=== PATIENT | male | born 1970 | race Caucasian/White ===

== ENCOUNTER 2022-04-16 14:10 | Emergency (ER) | payer OTHER, SELFPAY ==
[2022-04-16 14:38] VITALS: BP 162/64; PULSE 85; RESP 16; TEMP 36.8; O2SAT 97
--- NOTE | 2022-04-16 15:31 | ED.EAR ---
HPI - Ear Problem General Chief complaint: Ear Stated complaint: lt earache Time Seen by Provider: 04/16/22 15:31 Source: patient Mode of arrival: ambulatory Limitations: no limitations History of Present Illness HPI Narrative: 51-year-old male presenting for complaint of left ear pain worsening over the past 3 days. He denies tinnitus, dizziness, sinus congestion, fevers or chills. He has taken Tylenol and ibuprofen as needed for pain. MD Complaint: ear pain Related Data Allergies Allergy/AdvReac Type Severity Reaction Status Date / Time lisinopril AdvReac Mild dizziness Verified 04/16/22 15:41 olmesartan [From Benicar] AdvReac Mild Unknown Verified 04/16/22 15:41 Review of Systems Review of Systems: CONSTITUTIONAL: Denies malaise, chills, or fever. EYES: Denies visual changes, redness, or discharge. ENT: Denies rhinorrhea, congestion, sinus pain, and sore throat. Reports ear pain CARDIOVASCULAR: Denies chest pain, palpitations, or edema. RESPIRATORY: Denies cough or dyspnea. GASTROINTESTINAL: Denies abdominal pain, nausea, vomiting, diarrhea SKIN: Denies rash or itching. MUSCULOSKELETAL: Denies myalgia. NEUROLOGIC: Denies headache. All systems reviewed & are unremarkable except as noted in HPI and below PMFSH Comments At time of signature, agree with nursing past medical, surgical, social and family history. There is no relevant family history pertinent to the presenting complaint Exam Narrative: GENERAL: Well-appearing EYES: PERRLA, conjunctivae clear ENT: Nares clear. Mucous membranes moist. Right TM pearly webb with dull light reflex. Left TM erythematous and bulging with purulent effusion; no tragal tenderness. Oropharynx not erythematous without lesions. CHEST: Clear to auscultation, breath sounds equal. HEART: Regular rate and rhythm. No murmur heard. SKIN: Warm, dry, no rash. NEURO: Alert and oriented x3. PSYCH: Normal mood and affect Course Course Emergency Course: Patient is aware of diagnosis, understands and agrees to treatment plan. Anticipatory guidance given. Patient agrees to follow-up as directed and is aware of reasons to seek care at the emergency department. Portions of this record may have been created with voice recognition software Level of Care: Express Care Visit Vital Signs Vital signs: Vital Signs Temperature 98.2 F 04/16/22 14:38 Pulse Rate 85 04/16/22 14:38 Respiratory Rate 16 04/16/22 14:38 Blood Pressure 162/64 H 04/16/22 14:38 Pulse Oximetry 97 04/16/22 14:38 Oxygen Delivery Room Air 04/16/22 14:38 Temperature 98.2 F 04/16/22 14:38 Pulse Rate 85 04/16/22 14:38 Respiratory Rate 16 04/16/22 14:38 Blood Pressure 162/64 H 04/16/22 14:38 Pulse Oximetry 97 04/16/22 14:38 Oxygen Delivery Room Air 04/16/22 14:38 Reviewed Medical Decision Making MDM Narrative Medical decision making narrative: Advised supportive measures and signs/symptoms to go to the ER. Patient is appropriate for outpatient treatment and follow-up. Differential Diagnosis Differential Diagnosis: Coronavirus, strep pharyngitis, allergic rhinitis, upper respiratory tract infection, sinusitis, rhinosinusitis, nasopharyngitis, viral pharyngitis, otitis media, otitis externa, eustachian tube dysfunction, foreign body, cerumen impaction. Vital Signs Vital Signs: Vital Signs Temperature 98.2 F 04/16/22 14:38 Pulse Rate 85 04/16/22 14:38 Respiratory Rate 16 04/16/22 14:38 Blood Pressure 162/64 H 04/16/22 14:38 Pulse Oximetry 97 04/16/22 14:38 Oxygen Delivery Room Air 04/16/22 14:38 Temperature 98.2 F 04/16/22 14:38 Pulse Rate 85 04/16/22 14:38 Respiratory Rate 16 04/16/22 14:38 Blood Pressure 162/64 H 04/16/22 14:38 Pulse Oximetry 97 04/16/22 14:38 Oxygen Delivery Room Air 04/16/22 14:38 Discharge Plan Discharge Clinical Impression: Otitis media Patient Disposition: Home, Self-Care Condition: Stable Instr
== END 2022-04-16 15:45 | disposition home or self-care (01) ==
PROVIDERS: Emergency Provider Nurse Practitioner Family; PCP Physician Assistant Medical
DX: H66.92 Otitis media, unspecified, left ear (principal)
CPT/HCPCS: 99203; G0463

== ENCOUNTER 2023-07-22 14:36 | Outpatient (CLI) | payer OTHER, SELFPAY ==
--- NOTE | ~2023-07-22 | US_ITS ---
EXAMINATION: US carotid duplex BI DATE: 07/22/2023 14:57 INDICATION: Right facial paresthesias. TECHNIQUE: Grayscale, color Doppler, and pulsed Doppler images of the cervical carotid arteries were obtained. The degree of vessel stenosis is placed in one of the following categories: normal, <50%, 5 0-69%, >=70% but less than near-occlusion, near-occlusion, or total occlusion. Note that percent sten osis relative to normal distal artery lumen diameter is indirectly measured from velocity measurement s as described by Yosi, et al. Radiology 2003; [id number]. COMPARISON: None. FINDINGS: RIGHT: The right common carotid artery (CCA) peak systolic velocity (PSV) is 101 cm/s. The right internal ca rotid artery (ICA) PSV is 96 cm/s. The right ICA end-diastolic velocity (EDV) is 26 cm/s. The right I CA/CCA PSV ratio is 1.0. Grayscale and color Doppler images yield an estimate of <50% diameter reduct ion from plaque in the ICA. There is antegrade flow in the right vertebral artery. LEFT: The left CCA PSV is 96 cm/s. The left ICA PSV is 79 cm/s. The left ICA EDV is 26 cm/s. The left ICA/C CA PSV ratio is 0.8. Grayscale and color Doppler images yield an estimate of <50% diameter reduction from plaque in the ICA. There is antegrade flow in the left vertebral artery. IMPRESSION: 1. <50% stenosis in the right internal carotid artery. 2. <50% stenosis in the left internal carotid artery. Reviewed, dictated and finalized at location A. [employer]
== END 2023-07-22 14:37 ==
LOC: GOSHIMG 14:37
PROVIDERS: PCP Physician Assistant Medical; Visit Provider Physician Assistant Medical
DX: R20.2 Paresthesia of skin (principal); H91.91 Unspecified hearing loss, right ear; I65.23 Occlusion and stenosis of bilateral carotid arteries
CPT/HCPCS: 93880